=== PATIENT | female | born 1940 | race Caucasian/White ===

== ENCOUNTER 2016-10-05 07:04 | Day surgery (SDC) | payer MEDICARE ==
[2016-10-05] VITALS (14 sets, daily range): BP systolic 103–131; BP diastolic 56–72; PULSE 65–78; RESP 12–16; TEMP 97.8–98.4; O2SAT 92–98; Ht 157.5 cm; Wt 57.2 kg
[~2016-10-05] VITALS: Ht 157.5 cm; Wt 57.2 kg
[~2016-10-05 07:04] MED LIST: ACET-2321 PO; AMLO5TAB2 PO; ASPI-557 PO; CAL MAG ZINC PO; CALC-1106 PO; CELE-85 PO; DORZ10DR12 LEFT EYE; FENTANYL 100mcg/2ml INJECTION IV PRN; GLUC1TAB22 PO; LATA2.5D7 BOTH EYES; LEVO25TA9 PO; LIDOCAINE 1% (10mg/ml) 2ml SDV INJ ONE; LIDOCAINE 1%/EPI 1:100,000 20ml MDV ONE; LR 1,000 ML IV SCH; MIDAZOLAM 5mg/5ml INJECTION IV ONE; MULT-1198 PO; MULT-806 PO; OMEG-34 PO; OMEP-29 PO; POLY17PO18 PO; SIMV10TA76 PO; TRAM50TA53 PO
--- OUTSIDE RECORDS SUMMARY | 2016-10-05 07:13 | XMS REPORT | Continuity of Care Document ---
Author Author [facility] Organization [facility] Address Unknown Phone Unavailable Support Name Relationship Address Phone MATTHEW TOMLINSON MD Caregiver [address] [place] [address] Unavailable MATTHEW TOMLINSON MD Caregiver [address] [place] [address] Unavailable PAOLA RECINOS DO Caregiver [address] [place] [address] Unavailable AMBAR CALZADA Next Of Kin [id number] [place] [id number] Insurance Providers Guarantor Sadia Calzada Address [address] [place] [address] Email [facility] Policy Number [id number] Subscriber's Name ZhengSadia Giles Relationship 18 Self Group Number [id number] Advance Directives Directive Response Recorded Date/Time Ordered Resuscitation Status Full Code 08/31/16 2:32pm Resuscitation Documents on File Y HAS COPY W/PT 09/01/16 7:24am DPOA for Healthcare Only Y AMBAR, SPOUSE 09/01/16 7:24am Living Will Yes 09/01/16 7:24am Problems Active Problems Medical Problem Onset Date Status Degenerative arthritis of hip Unknown Chronic GERD (gastroesophageal reflux disease) Unknown Glaucoma Unknown Hyperlipemia Unknown Hypertension Unknown Hypothyroidism Unknown Medications Current Home Medications Medication Dose Units Route Directions Days Qty Instructions Start Date Acetaminophen (Tylenol) 325 Mg Tablet 650 Mg Oral Four Times Daily 100 Tablet 09/02/16 Amlodipine Besylate 5 Mg Tablet 5 Mg Oral Daily 08/22/16 Aspirin (Aspirin Ec) 325 Mg Tablet. 325 Mg Oral Twice A Day 84 Tablet 09/02/16 Satish Mag Zinc 1 Tab Oral Daily 08/22/16 Calcium Phosphate Trib/Vit D3 (Citracal + D3 Gummies) 1 Each Tab.chew 1 Tab Oral Daily 08/22/16 Celecoxib 200 Mg Capsule 1 Cap Oral Daily 08/22/16 Dorzolamide Hcl 10 Ml Drops 1 Drop Left Eye Only Twice A Day Gluc Pepper/Chondro Pepper A/Vit C/Mn (Glucosamine Chondroitin Tab) 1 Tab Tablet 1 Tab Oral Daily 10/07/11 Latanoprost 2.5 Ml Drops 1 Drop Both Eyes Bedtime 08/22/16 Levothyroxine Sodium 25 Mcg Tablet 25 Mcg Oral Before Breakfast Once daily before breakfast 08/22/16 Multivitamin (Multi Vitamin Daily) 1 Each Tablet 1 Tab Oral Daily 08/22/16 Multivitamins (Multivitamin) 1 Tab Tablet 1 Tab Oral Daily [place]-3S/Dha/Epa/Fish Oil (Fish Oil 1,200 Mg Softgel) 1 Each Capsule 1,200 Mg Oral Daily 08/22/16 Omeprazole (Prilosec) 20 Mg Capsule.dr 20 Mg Oral Daily 10/07/11 Polyethylene Glycol 3350 (Healthylax) 17 Gm Powd.pack 17 G Oral Daily 30 Packet 09/02/16 Simvastatin 10 Mg Tablet 10 Mg Oral Daily 10/07/11 Tramadol Hcl (Ultram) 50 Mg Tablet 50-100 Mg Oral Every 4 Hours as needed for Pain 60 Tablet 09/02/16 Past Home Medications Medication Directions Ordered Status Aspirin 81 Mg Tablet, 81 Mg Oral Daily 10/07/11 Discontinued Social History Social History Problem Response Recorded Date/Time Onset Date Status Reason for Hospitalization TOTAL RIGHT HIP ARTHROPLASTY 09/02/2016 11:42am Not Applicable Not Applicable Chewing Tobacco Status No 05/02/2012 6:26am Not Applicable Not Applicable Hx Substance Use No 09/01/2016 7:19am Not Applicable Not Applicable Hx Alcohol Use No 09/01/2016 7:19am Not Applicable Not Applicable Has the pt used tobacco in the last 12 months No 09/01/2016 7:19am Not Applicable Not Applicable Query Response Start Date Stop Date Smoking Status Never smoker Hospital Discharge Instructions Instructions: Care Instructions: Reason for Hospitalization: TOTAL RIGHT HIP ARTHROPLASTY I was in the hospital because (patient own words): FIX MY RIGHT HIP Discharge Diet: Resume normal diet as tolerated Discharge Activity: Continue the exercises you were given in the hospital three times a day. Your therapist will provide you with a home therapy program prior to your hospital discharge. As you feel stronger, increase the number of repetitions you do in each session. Please check with us before you swim, use a whirlpool, drive or ride a bicycle. Follow Up Appointments: Follow up as scheduled [place] APPOINTMENT ON 09/05/16 AT 9:45 AM. COMPLETE THE PAPERWORK PRIOR TO GOING TO APPOINTMENT. Pending Lab / Results: No Pending Lab Patient Instructions: Driving may be resumed once you are no longer taking narcotic medications and feel you can safely operate the vehicle. You may wish to practice in an empty parking lot at first. Keep in mind that your reaction time will be delayed for up to 6 weeks after surgery. Contact your surgeon for antibiotics to take before having dental work. Wound/Incision Care: In most cases, a Mepilex dressing will be placed at the time of surgery. This dressing will not need to be covered while showering. Leave dressing in place until your follow-up appointment as long as it remains clean, dry and stuck down well around the edges. Call your Doctor if you encounter a problem with your dressing. Please avoid submerging your incision until it is completely healed, once the Mepilex dressing is removed. This includes bathtubs, swimming pools, and hot tubs. DO NOT USE ALCOHOL, PEROXIDE, OR OINTMENTS of any kind on your incision. Pain Management/Treatment: Ice packs may be used, and will also help with the pain. You will be given a prescription for pain. Expected Signs/Symptoms: Some swelling around the incision, as well as in your feet and legs is normal. To help with this, elevate your feet on a footstool when sitting in a chair, and do the ankle pumps and circles whenever you are sitting still. Muscle action helps to move collected fluid out of the tissues and improve circulation. Ice packs may be used, and will also help with the pain. Report any persistent swelling, calf tenderness, increase in pain, or pain in the calf with warmth, or redness to your doctor. Notify Physician If: Report any complications to my office immmediately. This includes excessive bleeding, wound breakdown, redness around the wound, uncontrolled pain, or fever over 101 on 3 different measurements. Eat a balanced diet and get plenty of rest. During Business Hours:: If you have any questions or concerns, please call during regular office hours ([phone]). After Business Hours:: If you have any problems or need to reach a physician after hours or on the weekend please call the hospital's main number [phone] to have your physician paged. Condition at time of discharge: Good Plan of Care Discharge Date 09/02/16 12:10pm Disposition 01 DISCHARGED HOME, SELF-CARE Instructions/Education Provided [facility] Postop Instructions [facility] General Instructions Prescriptions See Medication Section Additional Instructions/Education POST OP APT WITH DR TOMLINSON 09/21/16 AT 0945 AM [place] ON 09-05-2016 AT 9:45AM FOR PHYSICAL THERAPY EVAL. PLEASE COMPLETE THE PAPERWORK IN THE [facility] PRIOR TO THE APPOINTMENT. PHONE [phone] Care Plan and Goals See Discharge Instructions Section Functional Status Query Response Date Recorded Mobility Status Ambulatory w/assist September 02, 2016 11:42am Assistive Devices Cane September 02, 2016 11:42am Activity Limitations Weakness Dizziness September 02, 2016 11:42am Feeding Ability Independent September 02, 2016 11:42am Toileting Ability Independent September 02, 2016 11:42am Grooming Ability Independent September 02, 2016 11:42am Dressing Ability Assist September 02, 2016 11:42am Driving Ability Dependent September 02, 2016 11:42am Housework Ability Assist September 02, 2016 11:42am Meal Preparation Ability Assist September 02, 2016 11:42am Stair Climbing Ability Assist September 02, 2016 11:42am Ability to complete ADL's impeded by Impaired Mobility September 02, 2016 11:42am Cognitive/Perceptual Impairments Impaired vision September 02, 2016 11:42am Visual Assistive Devices Glasses September 01, 2016 4:20pm Preferred Method of Learning Reading September 01, 2016 4:20pm Allergies, Adverse Reactions, Alerts No known allergies. Immunizations Query Response on File Recorded Date/Time Hx Influenza Vaccination Y JUL 2016 09/01/16 7:19am Hx Pneumococcal Vaccination Y 201309/01/16 7:19am Hx Influenza Vaccination Y JUL 2016 09/01/16 7:19am Vital Signs Acute Vital Signs Vital Response Date/Time Temperature (Fahrenheit) 97.0 deg F (96.8 - 99.1) 09/02/2016 10:02am Temperature (Calculated Celsius) 36.44913 degrees C (36.0 - 37.3) 09/02/2016 10:02am Temperature Source Oral 09/02/2016 10:02am Pulse Rate (adult) 79 bpm (60 - 100) 09/02/2016 12:29pm Respiratory Rate 16 breaths/min (10 - 20) 09/02/2016 12:29pm O2 Sat by Pulse Oximetry 92 % (90 - 100) 09/02/2016 10:02am Oxygen Delivery Method Room Air 09/02/2016 10:02am Oxygen Delivery Method Room Air 09/01/2016 2:19pm Blood Pressure 101/65 mm Hg 09/02/2016 10:02am Blood Pressure Source Automatic Cuff 09/02/2016 10:02am Height (Feet) 5 feet 09/01/2016 7:11am Height (Inches) 2.50 inches 09/01/2016 7:11am Weight (Kilograms) 60.100 kg 09/02/2016 8:00am Body Mass Index (BMI) 22.3 09/01/2016 7:11am Results Laboratory Results Test Name Result Units Flags Reference Collection Date/Time Result Date/ Time Comments White Blood Count 10.7 T/MM3 4.5-11.0 09/02/2016 4:41am 09/02/2016 5: 40am Red Blood Count 2.91 M/MM3 L 4.00-5.20 09/02/2016 4:41am 09/02/2016 5: 40am Hemoglobin 9.3 GM/DL D L 12-16 09/02/2016 4:41am 09/02/2016 5:41am Hematocrit 27.9 % L 36-46 09/02/2016 4:41am 09/02/2016 5:40am Mean Corpuscular Volume 95.9 UM3 80-100 09/02/2016 4:41am 09/02/2016 5: 40am Mean Corpuscular Hemoglobin 32.0 UUG 26-34 09/02/2016 4:41am 2016 5:40am Mean Corpuscular Hemoglobin Concent 33.3 GM/DL 31-37 09/02/2016 4:41am 09/02/2016 5:40am RDW Standard Deviation 40.7 FL 36.9-50.2 09/02/2016 4:41am 09/02/2016 5 :40am Platelet Count 115 T/MM3 L 130-400 09/02/2016 4:41am 09/02/2016 5:40am Mean Platelet Volume 12.6 UM3 H 9.4-12.4 09/02/2016 4:41am 09/02/2016 5: 40am Icterus Index < 2 0-7 09/02/2016 4:41am 09/02/2016 5:47am Chemistry Specimen Hemolysis < 15 0-25 09/02/2016 4:41am 09/02/2016 5 :47am 0-25: Specimen Exhibited No Hemolysis. Turbidity < 20 0-20 09/02/2016 4:41am 09/02/2016 5:47am Sodium Level 137 MEQ/L 134-144 09/02/2016 4:41am 09/02/2016 5:47am Potassium Level 4.5 MEQ/L 3.6-5 09/02/2016 4:41am 09/02/2016 5:47am Chloride Level 108 MEQ/L H 98-107 09/02/2016 4:41am 09/02/2016 5:47am Carbon Dioxide Level 25 MEQ/L 22-30 09/02/2016 4:41am 09/02/2016 5: 47am Anion Gap 4 MEQ/L L 5-15 09/02/2016 4:41am 09/02/2016 5:47am Blood Urea Nitrogen 18.0 MG/DL H 7-17 09/02/2016 4:41am 09/02/2016 5: 47am Creatinine 0.7 MG/DL 0.7-1.2 09/02/2016 4:41am 09/02/2016 5:47am BUN/Creatinine Ratio 26 RATIO 6-26 09/02/2016 4:41am 09/02/2016 5:47am Glomerular Filtration Rate Calc 81 09/02/2016 4:41am 09/02/2016 5: 47am Glucose Level 136 MG/DL H 65-110 09/02/2016 4:41am 09/02/2016 5:47am Calculated Osmolality 268 MOSM/KG 261-280 09/02/2016 4:41am 09/02/2016 5:47am Calcium Level 8.4 MG/DL 8.4-10.2 09/02/2016 4:41am 09/02/2016 5:47am Name: SADIA CALZADA Unit #: [id number] : 1940 Sex: F Admit Date: 09/01/16 Loc / Svc: SRG Discharge Date: DIAGNOSTIC IMAGING REPORT Report #: [id number] [facility] STACIA Mathis Indication: ITS.REASON: RIGHT TOTAL HIP PROCEDURE: RF HIP RIGHT 2 VIEW: Encounter: Initial Comparison: None Findings: Three fluoroscopic spot images show a right total hip prosthesis being placed. Impression: Fluoroscopy as above. Fluoroscopy time is 5 seconds. Fluoroscopy dose is 93.4 mRad. . Procedures Procedure Status Date Provider(s) Breast tomosynthesis bi Completed 08/19/16 [id number]"SCREENING MAMMOGRAPHY, PRODUCING DIRECT DIGITAL IMAGE Completed Chest x-ray 2vw frontal&latl Completed 08/04/16 Total replacement of right hip joint Completed 09/01/16 MATTHEW TOMLINSON MD Encounters Encounter Location Arrival/Admit Date Discharge/Depart Date Attending Provider Discharged Inpatient [facility] 09/01/16 6:49am 09/02/16 12:10pm MATTHEW TOMLINSON MD Registered Clinic [facility] 08/19/16 9:06am MARIALUISA MATHIS Registered Clinic [facility] 08/04/16 11:34am PAOLA RECINOS DO
--- OUTSIDE RECORDS SUMMARY | 2016-10-05 07:13 | XMS REPORT | Continuity of Care Document ---
Author Author [facility] Organization [facility] Address Unknown Phone Unavailable Allergies Medications Problems Procedures Results Encounters ACCT No. Visit Date/Time Discharge Status Pt. Type Provider Facility Loc./Unit Complaint [id number] 07/15/2013 09:02:00 07/15/2013 23 :59:59 [facility] Outpatient
[2016-10-05] MEDS ORDERED: CEFAZOLIN 1 GRAM INJECTION IV ONE (08:00)
--- NOTE | 2016-10-05 08:03 | ANESPREOP ---
Anesthesia Record Date and Time DATE: 10/05/16 TIME: 07:59 Pre-Op Diagnosis BCC Nose Proposed Surgical Procedure MOHS EXCISION OF THE RT NASAL SUPRATIP Allergies: Coded Allergies: No Known Allergies (Unverified , 09/01/16) Ht/Wt/BMI Height: 5 ' 2.00 " Weight: 57.200 kg BMI: 23.1 kg/m2 Vital Signs Date Time Temp Pulse Resp B/P Pulse Ox O2 Delivery O2 Flow Rate FiO2 10/05/16 07:15 97.8 67 14 131/72 98 Room Air Medications Inpatient Medications Current Medications Medications (Trade) Dose Ordered Sig/Ciaran Start Time Stop Time Status Last Admin Dose Admin Lactated Ringer's (Lactated Ringers) 1,000 ml @ 50 mls/hr Q20H 10/05/16 07:00 10/05/16 07:47 50 MLS/HR Fentanyl (Fentanyl) FENTANYL 25-50 MCG IV P... PRN PRN 10/05/16 07:00 Amlodipine Besylate (Amlodipine Besylate) 5 Mg Tablet, 5 MG PO DAILY, (Reported) Last Taken: on 10/05/16 0630 Aspirin (Aspir 81) 81 Mg Tablet.dr, 1 TAB PO DAILY, (Reported) Last Taken: on 08/25/16 Calcium Phosphate Trib/Vit D3 (Citracal + D3 Gummies) 1 Each Tab.chew, 1 TAB PO DAILY, (Reported) Last Taken: on 10/04/16 0800 Celecoxib (Celecoxib) 200 Mg Capsule, 1 CAP PO DAILY, (Reported) Last Taken: on 10/04/16 0800 Dorzolamide HCl (Dorzolamide HCl) 10 Ml Drops, 1 DROP LEFT EYE BID, (Reported) Last Taken: on 10/05/16 0630 Gluc Pepper/Chondro Pepper A/Vit C/Mn (Glucosamine Chondroitin Tab) 1 Tab Tablet, 1 TAB PO DAILY, (Reported) Last Taken: on 09/27/16 Latanoprost (Latanoprost) 2.5 Ml Drops, 1 DROP BOTH EYES HS, (Reported) Last Taken: on 10/04/16 2100 Levothyroxine Sodium (Levothyroxine Sodium) 25 Mcg Tablet, 25 MCG PO ACB, (Reported) Once daily before breakfast Last Taken: on 10/05/16 0630 Multivitamin (Multi Vitamin Daily) 1 Each Tablet , 1 TAB PO DAILY, (Reported) Last Taken: on 10/04/16 0800 [place]-3S/Dha/Epa/Fish Oil (Fish Oil 1,200 mg Softgel) 1 Each Capsule, 1,200 MG PO DAILY, (Reported) Last Taken: on 09/27/16 Omeprazole (Prilosec) 20 Mg Capsule.dr, 20 MG PO DAILY, (Reported) Last Taken: on 10/05/16 0630 Simvastatin (Simvastatin) 10 Mg Tablet, 10 MG PO DAILY, (Reported) Last Taken: on 10/04/16 2100 [Satish Mag Zinc] , 1 TAB PO DAILY, (Reported) Last Taken: on 10/04/16 0800 Currently on Beta Chris: No Medical/Surgical History Anesthesia PMH: Reports: *Hypertension (ON MEDS), Arthritis (RT HIP), Cancer ( BASAL CELL CARCINOMA), Glaucoma, Headaches (OCCASIONAL), Reflux (TAKES PRILOSEC) , Thyroid Disease (TAKES MEDS), Denies: *Angina, *Diabetes, *Dyspnea, *GA, Anesthesia Reactions, Asthma, CHF, COPD, CVA/Stroke/TIA, Cardiac Arrythmia, Clotting Problems, Deep Vein Thrombosis, Hepatitis, Hiatal Hernia, Malignant Hyperthermia, Pacemaker, Pneumonia, Renal Disease, Rheumatic Fever, Seizures, Sleep Apnea, Tuberculosis Smoking Status: Never smoker Use Chewing Tobacco?: No Second Hand Exposure: No Substance Use Type: does not use Alcohol Intake: none Past Surgical History Orthopedic Surgeries: Yes - RTH Abdominal Surgeries: No Genitourinary Surgeries: Yes - MULTIPLE CYSTOSCOPIES Cardiac Surgeries: No Endocrine Surgeries: No Reproductive Surgeries: No Neurological Surgeries: No Ear Surgeries: No Nose Surgeries: No Throat Surgeries: Yes - TONSILS CHILD Other Surgeries: Yes - CATARACT Anesthesia Adverse Reactions: FOUND none Family Hx of Anesthesia Advers: none Hx of Motion Sickness: No Pertinent Findings EKG Rhythm: Sinus Rhythm Physical Exam Respiratory: Bilat breath sounds equal, Lungs clear Cardiovascular: FOUND Regular rate, rhythm, FOUND No murmur Airway Assessment Mallampati Score: I TMD: 3 Fingerbreadths Neck Extension: Good Overall Assessment: No Airway Concerns ASA: 2 Plan Anesthesia Plan: MAC Discussion Discussed risks/options/alternatives of anesthesia and questions answered. Patient consents. Nursing pain assessment noted. Present: Spouse Attestation Statement Prior to the delivery of any anesthetic medication, I examined the patient, developed the plan, obtained the patient's consent and discussed the risk and benefits of the procedure with the patient/guardian. MC PARKER CRNA Oct 05, 2016 08:02
--- NOTE | 2016-10-05 08:45 | NUR ---
MOHS EXCISION PROCEDURE Pt had Mohs excision procedure done in preop area by Dr Rehman. Prior to procedure starting time out was performed by Indira Vásquez RN, Dr Rehman, and Koki Benítez RN at 0841. Ancef 1 gm was given. Sedation then given by Koki Benítez RN. Pt was prepped by Dr Rehman w/ Chloraxylenol 3% to entire face. Local was injected into right nasal area by Dr Rehman at 0842 for a total of 6cc used. Cautery was used at 20 (O2 off during cautery use for pt safety) Mohs excision done to right nasal supratip and specimen sent directly to pathology for frozen section per Dr ruiz. (accession #[id number])-labeled (Mohs excision of right nasal supratip) Dressing was then applied to nasal area of gauze and medipore tape. Pt tolerated procedure well. Addendum: 10/05/16 at 1234 by MILLA PIPER RN CORRECTION RN was Indira Yee RN not Indira Burch.
[2016-10-05] MEDS ORDERED: MIDAZOLAM 2mg/2ml INJECTION ONE (09:26)
[2016-10-05] MEDS ORDERED: FENTANYL 100mcg/2ml INJECTION ONE (09:27)
--- NOTE | 2016-10-05 09:51 | PDPROCED ---
Procedure Note Date 10/05/16 Procedure Name Mohs excision BCC right nasal supratip with complex closure: Lesion size 0.6 cm , excision and final defect 1.0 cm Procedure Detail Preop dx: BCC right nasal supratip Postop dx: Same Anesthesia: MAC EBL: Less than 10 ml Case: Clean Complications: None OSCAR LOMBARDO MD Oct 05, 2016 09:51
[2016-10-05] MEDS ORDERED: HYDROCODONE/APAP 5 mg/325 mg TABLET PO PRN (10:00)
[2016-10-05] MEDS ORDERED: CEPH-583 PO (10:04)
[2016-10-05] MEDS ORDERED: ACET1TAB12 PO (10:04)
--- NOTE | 2016-10-05 10:44 | ANESPO ---
Post-Op Note Date 10/05/16 Time: 10:43 Status Pt Participated in Evaluation: Pt participated in person Vital Signs Date Time Temp Pulse Resp B/P Pulse Ox O2 Delivery O2 Flow Rate FiO2 10/05/16 09:55 98.4 77 12 112/61 95 Room Air 10/05/16 09:10 2.00 Respiratory Function: Airway patent, Regular respirations Cardiovascular Function: Regular pulse Mental Status: Alert/oriented Pain Level Intensity: 0 Hydration: Taking po fluids Complications during Recovery None apparent Follow-Up Instructions Instructions Per Surgeon MC PARKER CRNA Oct 05, 2016 10:43
--- NOTE | 2016-10-05 16:01 | OPNOTEF ---
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 OPERATION Mohs excision of basal cell carcinoma of right nasal supratip with complex closure. Lesion size was 0.6 cm. Excision and final defect 1 cm. SURGEON Melissa Rehman M.D. ANESTHESIA MAC INDICATIONS The patient is a 76-year-old woman who presented with a complaint of a lesion of her right nasal supratip that had been present for two years. It was red, smooth and slowly growing. She denied any bleeding. She had a biopsy of the site which revealed a basal cell carcinoma. She denied any personal history of skin cancer but does have a history of excessive sun exposure as a child. She was referred by Dr. Lizarraga. On exam, she had a 0.6 cm erythematous macule of the right supratip. In detailed discussion with the patient preoperatively, the risks, benefits and alternatives of Mohs excision of the lesion and closure were reviewed including, but not limited to, bleeding, infection, poor or keloid scarring, residual and/or recurrent disease, possible partial or complete loss of the flap or graft. The patient understood and wished to proceed. DESCRIPTION OF PROCEDURE The patient was marked preoperatively and then after suitable IV sedation, the face was prepped and draped in the usual sterile manner. Of note, she received 1 gram of Ancef preoperatively and wore sequential stockings throughout. First, the area was infiltrated with 1% lidocaine with epinephrine. After a wait for hemostasis, the lesion was excised with beveled margins and handed off as a specimen with a tag at the 12 o'clock margin. Subsequent Mohs pathologic evaluation revealed basal cell carcinoma with clear margins. The patient was then brought to the operating room and again prepped and draped in the usual sterile manner. The area was again infiltrated with 1% lidocaine with epinephrine and then widely undermined. Dog ears were removed and the wound was then closed in two layers using interrupted buried sutures of 5-0 Vicryl and interrupted 6-0 nylon. Benzoin and Steri- Strips were applied, as well as a dry sterile dressing and Mefix tape. The patient was then brought to the recovery room in stable condition. Estimated blood loss was less than 10 mL. The case was clean. Specimens: Basal cell carcinoma of the right nasal supratip. [facility]
== END 2016-10-05 10:50 | disposition home or self-care (01) ==
LOC: SCU 07:04
PROVIDERS: ATTEND Surgery Plastic and Reconstructive Surgery
DX: C44.311 Basal cell carcinoma of skin of nose (principal)
CPT/HCPCS: 11641; 12051; 88305; 88331; 88332; J0690; J2250; J3010; J7120